=== PATIENT | female | born 1945 ===

== ENCOUNTER 2025-06-11 11:00 | Outpatient (CLI) | payer MEDICARE, MEDICAID | END 2025-06-11 11:01 | disposition home or self-care (01) | LOC: ULT 11:00 | PROVIDERS: ATTEND Internal Medicine Gastroenterology | DX: K74.60 Unspecified cirrhosis of liver (principal); K76.82 Hepatic encephalopathy; K83.8 Other specified diseases of biliary tract | CPT/HCPCS: 76705 ==